=== PATIENT | female | born 1990 | race Caucasian/White ===

== ENCOUNTER → 2022-10-09 12:00 | Outpatient (CLI) | payer BC, SELFPAY ==
[2022-10-09 21:11] LABS: Clostridium Difficile Tox PCR Negative for C. diff (Negative)
[2022-10-14 16:20] LABS: Fecal Immunochemical Test Negative (Negative)
== END ==
PROVIDERS: PCP Physician Assistant Medical; Visit Provider Physician Assistant Medical
DX: R19.7 Diarrhea, unspecified (principal)
CPT/HCPCS: 82274; 87045; 87329; 87493; 87899